=== PATIENT | female | born 1990 | race Caucasian/White ===

== ENCOUNTER 2018-06-18 10:40 | Emergency (ER) | payer BC, OTHER ==
[2018-06-18 10:45] VITALS: BP 105/57; PULSE 87; TEMP 98.7; BMI 17.4
[2018-06-18] MEDS ORDERED: SODIUM CHLORIDE 1,000 ML IV STA (11:00)
[2018-06-18] MEDS ORDERED: ACETAMINOPHEN 325 MG TABLET (FP) PO ONE (11:08)
--- NOTE | 2018-06-18 11:14 | PDOC ---
History of Present Illness - General Chief Complaint: Revisit, Lab Variance Stated Complaint: SENT FOR "LOW SODIUM", C/O HEADACHE Time Seen by Provider: 06/18/18 10:43 - History of Present Illness Initial Comments: 06/18/18 11:09 28 F with h/o anorexia nervosa presenting to ED for evaluation of hyponatremia. Pt had routine bloodwork drawn yesterday that showed a Na of 131. Pt denies any symptoms other than mild headache. Denies N/V. Denies confusion. No seizures. Pt states that she has had low sodium in the past. Is currently on several medications, including zoloft and spironolactone for acne. Pt denies any change in PO habits. No increased water intake. Pt also sent for evaluation of abnormal EKG. EKG taken at facility shows RBBB. Pt reports that she has had "abnormal EKGs" in the past. Denies any CP/SOB/ palpitations. Past History - Past Medical History Allergies/Adverse Reactions: Allergies Allergy/AdvReac Type Severity Reaction Status Date / Time No Known Allergies Allergy Verified 06/18/18 10:41 Home Medications: Ambulatory Orders Aripiprazole [Abilify] 15 mg PO DAILY 06/18/18 Calcium Carb, Citrate/Vit D3 [Calcium + D3 ER Tablet] 1 each PO BID 06/18/18 Docusate Sodium [Colace] 100 mg PO TID 06/18/18 Famotidine [Pepcid] 20 mg PO BID 06/18/18 Multivitamin [Poly-Vitamin] 2 each PO HS 06/18/18 Multivitamins [Tab-A-Vit -] 1 tab PO DAILY 06/18/18 Omeprazole 40 mg PO DAILY 06/18/18 Polyethylene Glycol 3350 [Miralax (For Daily Use) -] 17 gm PO TID 06/18/18 Quetiapine Fumarate [Seroquel -] 25 mg PO HS 06/18/18 Sertraline HCl [Zoloft] 200 mg PO DAILY 06/18/18 Spironolactone 200 mg PO HS 06/18/18 traZODone HCL [Trazodone HCl] 200 mg PO HS 06/18/18 CVA: No COPD: No Psychiatric Problems: Yes (EATING DISORDER) - Suicide/Smoking/Psychosocial Hx Smoking History: Current every day smoker Have you smoked in the past 12 months: Yes Number of Cigarettes Smoked Daily: 5 Information on smoking cessation initiated: Yes 'Breaking Loose' booklet given: 06/18/18 Hx Alcohol Use: No Drug/Substance Use Hx: No Substance Use Type: None Review of Systems - Review of Systems Comments:: 06/18/18 11:14 "GENERAL/CONSTITUTIONAL: No fever or chills. No weakness. HEAD, EYES, EARS, NOSE AND THROAT: No change in vision. No ear pain or discharge. No sore throat. CARDIOVASCULAR: No chest pain, no shortness of breath, no loss of consciousness RESPIRATORY: No cough, wheezing, or hemoptysis. GASTROINTESTINAL: No nausea, vomiting, diarrhea or constipation. GENITOURINARY: No dysuria, frequency, or change in urination. MUSCULOSKELETAL: No joint or muscle swelling or pain. No neck or back pain. SKIN: No rash NEUROLOGIC: + mild headache, No vertigo, no change in strength/sensation. ENDOCRINE: No increased thirst. No abnormal weight change. HEMATOLOGIC/LYMPHATIC: No anemia, easy bleeding, or history of blood clots. ALLERGIC/IMMUNOLOGIC: No hives or skin allergy. " *Physical Exam - Vital Signs Last Vital Signs Temp Pulse Resp BP Pulse Ox 98.7 F 87 18 105/57 L 100 06/18/18 10:40 06/18/18 10:40 06/18/18 10:40 06/18/18 10:40 06/18/18 10:40 - Physical Exam Comments: 06/18/18 11:20 "GENERAL: Awake, alert, and fully oriented, in no acute distress. HEAD: No signs of trauma EYES: PERRLA, EOMI, sclera anicteric, conjunctiva clear ENT: Auricles normal inspection, hearing grossly normal, nares patent, oropharynx clear without exudates. Moist mucosa NECK: Nontender, no stepoffs, Normal ROM, supple, no lymphadenopathy, JVD, or masses LUNGS: Breath sounds equal, clear to auscultation bilaterally. No wheezes, and no crackles HEART: Regular rate and rhythm, normal S1 and S2, no murmurs, rubs or gallops ABDOMEN: Soft, nontender, normoactive bowel sounds. No guarding, no rebound. No masses EXTREMITIES: Normal range of motion, no edema. No clubbing or cyanosis. No cords, erythema, or tenderness NEUROLOGICAL: Cranial nerves II through XII intact. 5/5 strength and sensation in all extremities, Normal speech, normal gait, normal cerebellar function SKIN: Warm, Dry, normal turgor, no rashes or lesions noted. ED Treatment Course - LABORATORY CBC & Chemistry Diagram: 06/18/18 11:25 06/18/18 11:25 Medical Decision Making - Medical Decision Making 06/18/18 11:20 28 F sent from [facility] for low Na and ?abnormal EKG. Will recheck Na. Pt likely has mild hypoNa 2/2 diuretic use (spironolactone for acne) and SSRI use. Pt with only mild headache, no other neurologic symptoms, and normal exam. Pt's EKG shows incomplete RBBB, which is likely old per pt's report. No other abnormalities on EKG. Pt with no CP/SOB/palpitations. No indication for cardiac testing at this time. - Labs - Tylenol - IVF 06/18/18 12:21 Na 130 today. Pt with mild hyponatremia. Labs otherwise wnl. Pt reassessed - states CEDENO has resolved with tylenol. Neuro exam continues to be normal. Pt instructed to stop taking spironolactone. Also instructed to stop zoloft if Na continues to trend downwards. Pt is well appearing, with normal vitals. Clinically stable for DC at this time. I discussed the physical exam findings, ancillary test results and final diagnoses with the patient. I answered all of the patient's questions. The patient was satisfied with the care received and felt comfortable with the discharge plan and treatment plan. The patient agrees to follow up with the primary care physician within 24-72 hours. *DC/Admit/Observation/Transfer Diagnosis at time of Disposition: Hyponatremia - Discharge Dispostion Disposition: HOME Condition at time of disposition: Stable - Referrals - Patient Instructions Printed Discharge Instructions: DI for Hyponatremia Additional Instructions: You have a mild case of hyponatremia, or low sodium levels. Your sodium level today was 130. This may be due to some of the medications you are currently taking ( spironolactone and zoloft). STOP taking the spironolactone immediately. If your sodium levels continue to drop even after stopping the spironolactone, stop taking the zoloft as well. If you experience any worsening headaches, nausea, vomiting, confusion, seizures , or any other concerning symptoms, return to the ER immediately. Otherwise, follow up with your primary within 1 week for re-evaluation. - Post Discharge Activity - Attestations Physician Attestion: 06/18/18 12:25 I, Dr. Tera Maravilla MD, attest that this document has been prepared under my direction and personally reviewed by me in its entirety. I further attest, that it accurately reflects all work, treatment, procedures and medical decision -making performed by me.
[2018-06-18 11:28] LABS: HCG,QUALITATIVE URINE Negative
[2018-06-18 11:31] LABS: PH,URINE 6.5 (4.5-8); URINE APPEARANCE Clear; URINE BILIRUBIN Negative (NEGATIVE); URINE COLOR Yellow; URINE GLUCOSE (UA) Negative (NEGATIVE); URINE KETONE Negative (NEGATIVE); URINE LEUK ESTERASE TRACE (NEGATIVE); URINE NITRITE Negative (NEGATIVE); URINE PROTEIN Negative (NEGATIVE); URINE UROBILINOGEN 0.2 (0.2-1.0)
[2018-06-18 11:43] LABS: BASO % 0.8 % (0-2.0); EOS % 5.2 % (0-4.5); HEMOGLOBIN 11.6 GM/dl (10.7-15.3); LYMPH % 19.1 % (8-40); MCH 29.7 pg (25.7-33.7); MCHC 32.1 g/dl (32.0-36.0); MEAN CELL VOLUME 92.4 fl (80-96); MEAN PLT VOLUME 8.4 fl (7.5-11.1); MONO % 10.1 % (3.8-10.2); NEUT % 64.8 % (42.8-82.8); PLATELET COUNT 224 K/MM3 (134-434); RDW 11.9 % (11.6-15.6); WHITE BLOOD COUNT 6.6 K/mm3 (4.0-10.8)
[2018-06-18 11:44] LABS: URINE WBC 0-2 (0-5)
[2018-06-18] MEDS ORDERED: ACETAMINOPHEN 325 MG TABLET (FP) ONE (11:52)
[2018-06-18 11:57] LABS: ALK PHOS 35 U/L (32-92); ANION GAP -1 MMOL/L (8-16); BILIRUBIN,TOTAL 0.6 mg/dl (0.2-1.0); BLOOD UREA NITROGEN 14 mg/dl (7-18); CALCIUM 8.5 mg/dl (8.4-10.2); CHLORIDE 105 mmol/L (98-107); CO2 26 mmol/L (22-28); CREATININE 0.6 mg/dl (0.6-1.3); GLUCOSE,RANDOM 79 mg/dl (74-106); PHOSPHOROUS 4.1 mg/dl (2.5-4.6); POTASSIUM 3.9 mmol/L (3.5-5.1); SGOT/AST 19 U/L (10-42); SGPT/ALT 20 U/L (10-40); SODIUM 130 mmol/L (136-145); TOT PROT 5.6 g/dl (6.4-8.3)
== END 2018-06-18 12:35 | disposition home or self-care (01) ==
LOC: FER 10:40
PROC: 3E0337Z Introduction of Electrolytic and Water Balance Substance into Peripheral Vein, Percutaneous Approach (ICD-10-PCS; principal; 2018-06-18)
DX: E87.1 Hypo-osmolality and hyponatremia (principal); F50.00 Anorexia nervosa, unspecified; F17.210 Nicotine dependence, cigarettes, uncomplicated
CPT/HCPCS: 36415; 80053; 81003; 81015; 83735; 84100; 84703; 85025; 99282-25; J7030